=== PATIENT | male | born 1975 | race Caucasian/White ===

== ENCOUNTER 2023-07-16 09:37 | Outpatient (AMB) | payer BC, SELFPAY ==
--- NOTE | 2023-07-16 09:52 | MHC.OFFVIS ---
Vital Signs 07/16/23 09:55 Height 5 ft 8 in Weight 172 lb 6 oz BMI 26.2 BP 132/70 Blood Pressure Location Rt brachial Position Sitting Respiration 17 Pulse 59 Pulse Source Pulse Oximeter Pulse Oximetry (%) 98 Oxygen Delivery Method Room Air Intake Visit Reasons: ENP Fasciculations of the face - LVM w/add Intake Note: Pt presents to the office for new pt evaluation of left side facial twitching. Pt reports this has been going on for 6 months. He states most recently, its primarily the left eye, intermittent, not painful. [employer] Required: No Allergies No Known Allergies Allergy (Verified 07/16/23 09:52) Medication List - Last Reconciled 07/16/23 by Malou Herrera MD metoprolol succinate ER 50 mg PO DAILY omalizumab (Xolair) 150 mg subcut Q4W HPI Comments Details: 47y/o right handed male comes for evaluation of facial twitching . It started about 8 mths ago .It is mostly around his left eye and left side of the mouth and occasionally on the right side. It is not painful and has multiple episodes throughout the day and has episodes every day.He denies any shooting pains or tingling or numbness. WHen he was on vacation he noticed a decrease in his movements. No migraines but recalls having photopsia 2 years ago - 5 episodes. He denies family history, denies double vision He has h/o vertigo . His EEG and MRI brain w/o roseline were normal . he has h/o depression and anxiety and sees Dr. Figueroa He reports sleep issues due to anxiety. He was diagnosed with sleep apnea 5 years ago but he could not use CPAP. No exposure to neuroleptcis , depakote or reglan. [facility] Medical History (Updated 07/16/23 @ 10:18 by Malou Herrera MD) Extrapyramidal symptom Facial twitching Obstructive sleep apnea of adult Asymptomatic PVCs Positive FREDY (antinuclear antibody) Urticaria Asthma Anxiety Depression Surgical History (Updated 07/16/23 @ 09:58 by Rosa Stern CMA) H/O nasal septoplasty H/O knee surgery Social History (Updated 07/16/23 @ 09:59 by Rosa Stern CMA) Household Members: None Housing: Apartment Alcohol intake: current Comment: 1-2 drinks/week Patient Tobacco Use Status: Never used Tobacco Physical Exam Vital Signs: Last Vital Signs Pulse 59 07/16/23 09:55 Resp 17 07/16/23 09:55 BP 132/70 07/16/23 09:55 Pulse Ox 98 07/16/23 09:55 Oxygen Delivery Method Room Air 07/16/23 09:55 BMI result Body Mass Index 26.2 Const Orientation/consciousness: patient oriented x3 Eyes Pupils: Equal, round and reactive pupils present Neuro Other: mild decreased facial expression and blink right UE mild cog wheel rigidity Gait- mild decreased arm swing on the right Video- shows mild twitching left side of the face General: patient oriented x3 Cranial nerves: Yes Facial sensation intact/muscles of mastication intact, Yes Equal, round and reactive pupils present, Yes Bilaterally intact EOM present, Yes Nystagmus not present, Yes Normal facial strength present, Yes Midline tongue present, Yes Symmetric palate elevation present and Yes Ability to bilaterally elevate shoulders present Cognition (Neuro): normal cognition Gait exam (Neuro): Normal gait present Motor exam (neuro): 5/5 motor strength present throughout Deep tendon reflexes (DTR's): Right triceps reflex intensity grade: 2+, Left triceps reflex intensity grade: 2+, Rt Biceps (C5, C6): 2+, Left biceps reflex intensity grade: 2+, Right brachioradialis reflex intensity grade: 2+, Left brachioradialis reflex intensity grade: 2+, Right patellar reflex intensity grade: 3+ and Left patellar reflex intensity grade: 3+ Psych Affect: Anxious affect present Assessment & Plan Assessment & Plan (1) Facial twitching: Comment: episodic likely related to poorly controlled mood Code(s): G51.4 - Facial myokymia Category: Medical (2) Extrapyramidal symptom: Comment: right cogwheel rigidity facial bradykinesia Code(s): R29.818 - Other symptoms and signs involving the nervous system Category: Medical Plan Reviewed MRI and EEG - normal Reassured patient that it is likely related to anxiety I suggested he follow up with Dr. Figueroa for management of anxiety 'will consider repeat sleep study F/u mild extrapyramidal symptoms Coding Level of Care Code New Pt Level 4 (21338) Diagnoses Facial twitching G51.4 Extrapyramidal symptom R29.818
[2023-07-16 09:55] VITALS: BP 132/70; PULSE 59; RESP 17; O2SAT 98; BMI 26.2
== END 2023-07-16 10:23 | disposition home or self-care (01) ==
PROVIDERS: PCP Internal Medicine; Visit Provider Psychiatry & Neurology Neurology
DX: G51.4 Facial myokymia (principal); R29.818 Other symptoms and signs involving the nervous system
CPT/HCPCS: 99204

== ENCOUNTER → 2023-07-16 09:37 | Outpatient (BNVA) | payer BC, SELFPAY | PROVIDERS: PCP Internal Medicine; Visit Provider Psychiatry & Neurology Neurology ==

== ENCOUNTER 2024-01-29 08:50 | Outpatient (AMB) | payer BC, SELFPAY ==
--- NOTE | 2024-01-29 08:54 | A.OFFVIS_ITS ---
Vital Signs 01/29/24 08:56 Height 5 ft 8 in BP 118/76 Blood Pressure Location Rt brachial Position Sitting Intake Visit Reasons: follow up Fasciculations of the face Intake Note: Patient presents for follow up Allergies No Known Allergies Allergy (Verified 01/29/24 08:56) HPI Comments Details: 48y/o right handed male comes for follow up of facial twitching .The facial twitching has resolved . He switched jobs and he is less stressed. Now he reports episodes of visual aura- black spots lasting 30-40 minutes followed by headache. The headaches are not debilitating , mild pressure in parietal region . no light or noise sensitivity. Mild nausea.The headache scan last few hrs but can work through it.The episodes started 2 years ago - had 1/6 mths and now has more frequent episodes 1-4/month. 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 His sleep is worse - frequent arousals snoring and excessive daytime sleepiness. History from initial visit- Facial twitching started about 8 mths ago .It is mostly around his left eye and left side of the mouth and occasionally on the right side. It is not painful and has multiple episodes throughout the day and has episodes every day.He denies any shooting pains or tingling or numbness. WHen he was on vacation he noticed a decrease in his movements. No migraines but recalls having photopsia 2 years ago - 5 episodes. He denies family history, denies double vision He has h/o vertigo . His EEG and MRI brain w/o roseline were normal . he has h/o depression and anxiety and sees Dr. Figueroa He reports sleep issues due to anxiety. He was diagnosed with sleep apnea 5 years ago but he could not use CPAP. No exposure to neuroleptcis , depakote or reglan. [facility] Medical History (Updated 01/29/24 @ 09:21 by Malou Herrera MD) Hypersomnia Snoring Ocular migraine Extrapyramidal symptom Facial twitching Obstructive sleep apnea of adult Asymptomatic PVCs Positive FREDY (antinuclear antibody) Urticaria Asthma Anxiety Depression Surgical History H/O nasal septoplasty H/O knee surgery Social History Household Members: None Housing: Apartment Alcohol intake: current Comment: 1-2 drinks/week Patient Tobacco Use Status: Never used Tobacco Physical Exam Vital Signs: Last Vital Signs BP 118/76 01/29/24 08:56 Const Orientation/consciousness: patient oriented x3 Eyes Pupils: Equal, round and reactive pupils present Neuro Other: mild decreased facial expression and blink right UE mild cog wheel rigidity General: patient oriented x3 Cranial nerves: Yes Facial sensation intact/muscles of mastication intact, Yes Equal, round and reactive pupils present, Yes Bilaterally intact EOM present, Yes Nystagmus not present, Yes Normal facial strength present, Yes Midline tongue present, Yes Symmetric palate elevation present and Yes Ability to bilaterally elevate shoulders present Cognition (Neuro): normal cognition Gait exam (Neuro): Normal gait present Motor exam (neuro): 5/5 motor strength present throughout Psych Affect: Anxious affect present Assessment & Plan Assessment & Plan (1) Ocular migraine: Code(s): G43.109 - Migraine with aura, not intractable, without status migrainosus Category: Medical (2) Extrapyramidal symptom: Comment: right cogwheel rigidity facial bradykinesia Code(s): R29.818 - Other symptoms and signs involving the nervous system Category: Medical (3) Obstructive sleep apnea of adult: Comment: could not tolerate CPAP . Code(s): G47.33 - Obstructive sleep apnea (adult) (pediatric) Category: Medical (4) Facial twitching: Comment: episodic likely related to poorly controlled mood- resolved now Code(s): G51.4 - Facial myokymia Category: Medical Plan I will trial him on amitriptyline 10 mg qhs for ocular migraine prophylaxis Home sleep test to reevaluate his BINDU and determine if he is a candidate for INSPIRE Orders: Orders RT home sleep study Today G47.10 - Hypersomnia, unspecified, R06.83 - Snoring Medications: New amitriptyline 10 mg PO BEDTIME 30 tabs 6RF Coding Level of Care Code Est Pt Level 4 (75523) Complex EM visit Add On G2211 Diagnoses Ocular migraine G43.109 Extrapyramidal symptom R29.818 Obstructive sleep apnea of adult G47.33 Facial twitching G51.4
[2024-01-29 08:56] VITALS: BP 118/76
== END 2024-01-29 09:26 | disposition home or self-care (01) ==
PROVIDERS: PCP Internal Medicine; Visit Provider Psychiatry & Neurology Neurology
DX: G43.109 Migraine with aura, not intractable, without status migrainosus (principal); R29.818 Other symptoms and signs involving the nervous system; G47.33 Obstructive sleep apnea (adult) (pediatric); G51.4 Facial myokymia
CPT/HCPCS: 99214

== ENCOUNTER → 2024-01-29 08:50 | Outpatient (BNVA) | payer BC, SELFPAY | PROVIDERS: PCP Internal Medicine; Visit Provider Psychiatry & Neurology Neurology ==

== ENCOUNTER → 2024-03-22 07:48 | Outpatient (REF) | payer BC, SELFPAY | LOC: HO.SL 07:48 | PROVIDERS: PCP Internal Medicine; Visit Provider Psychiatry & Neurology Neurology | DX: R06.83 Snoring (principal); G47.10 Hypersomnia, unspecified | CPT/HCPCS: 95806 ==

== ENCOUNTER → 2024-03-23 08:06 | Outpatient (BNV) | payer BC, SELFPAY | PROVIDERS: PCP Internal Medicine; Visit Provider Psychiatry & Neurology Neurology | DX: R06.83 Snoring (principal); G47.10 Hypersomnia, unspecified | CPT/HCPCS: 95806 ==

== ENCOUNTER 2024-06-10 07:17 | Outpatient (AMB) | payer BC, SELFPAY ==
[2024-06-10 07:24] VITALS: BP 116/72; PULSE 69; O2SAT 98; BMI 26.9
--- NOTE | 2024-06-10 07:24 | MHC.OFFVIS ---
Vital Signs 06/10/24 07:24 Height 5 ft 8 in Weight 177 lb BMI 26.9 BP 116/72 Blood Pressure Location Lt brachial Position Sitting Pulse 69 Pulse Source Pulse Oximeter Pulse Oximetry (%) 98 Oxygen Delivery Method Room Air Intake Visit Reasons: follow up Fasciculations of the face Intake Note: Patient presents for follow up sleep study done 03/22/24 new med trial Amitriptyline. Allergies No Known Allergies Allergy (Verified 06/10/24 07:34) Medication List - Last Reconciled 06/10/24 by Malou Herrera MD amitriptyline 10 mg PO BEDTIME fluoxetine (Prozac) 20 mg PO DAILY omalizumab (Xolair) 150 mg subcut Q4W HPI Comments Details: 48y/o right handed male comes for follow up of facial twitching and ocular migraine. His ocular migraines are betetr with amitriptyline 10mg qhs . He missed taking amitriptyline for 2 weeks when he wnet on vacation an dhe had 1 epsidoe of migraine at that time . .The facial twitching has resolved . He switched jobs and he is less stressed.Home sleep test was normal . History from initial visit- Facial twitching started about 8 mths ago .It is mostly around his left eye and left side of the mouth and occasionally on the right side. It is not painful and has multiple episodes throughout the day and has episodes every day.He denies any shooting pains or tingling or numbness. WHen he was on vacation he noticed a decrease in his movements. No migraines but recalls having photopsia 2 years ago - 5 episodes. He denies family history, denies double vision He has h/o vertigo . His EEG and MRI brain w/o roseline were normal . he has h/o depression and anxiety and sees Dr. Figueroa He reports sleep issues due to anxiety. He was diagnosed with sleep apnea 5 years ago but he could not use CPAP. No exposure to neuroleptcis , depakote or reglan. [facility] Medical History Hypersomnia Snoring Ocular migraine Extrapyramidal symptom Facial twitching Obstructive sleep apnea of adult Asymptomatic PVCs Positive FREDY (antinuclear antibody) Urticaria Asthma Anxiety Depression Surgical History H/O nasal septoplasty H/O knee surgery Social History Household Members: None Housing: Apartment Alcohol intake: current Comment: 1-2 drinks/week Patient Tobacco Use Status: Never used Tobacco Physical Exam Vital Signs: Last Vital Signs Pulse 69 06/10/24 07:24 BP 116/72 06/10/24 07:24 Pulse Ox 98 06/10/24 07:24 Oxygen Delivery Method Room Air 06/10/24 07:24 BMI result Body Mass Index 26.9 Const Orientation/consciousness: patient oriented x3 Eyes Pupils: Equal, round and reactive pupils present Neuro Other: mild decreased facial expression and blink normal tone Decreased arm swing on the right General: patient oriented x3 Cranial nerves: Yes Facial sensation intact/muscles of mastication intact, Yes Equal, round and reactive pupils present, Yes Bilaterally intact EOM present, Yes Nystagmus not present, Yes Normal facial strength present, Yes Midline tongue present, Yes Symmetric palate elevation present and Yes Ability to bilaterally elevate shoulders present Cognition (Neuro): normal cognition Gait exam (Neuro): Normal gait present Motor exam (neuro): 5/5 motor strength present throughout Psych Affect: Anxious affect present Assessment & Plan Assessment & Plan (1) Ocular migraine: Code(s): G43.109 - Migraine with aura, not intractable, without status migrainosus Category: Medical (2) Extrapyramidal symptom: Comment: right cogwheel rigidity facial bradykinesia Code(s): R29.818 - Other symptoms and signs involving the nervous system Category: Medical (3) Facial twitching: Comment: episodic likely related to poorly controlled mood- resolved now Code(s): G51.4 - Facial myokymia Category: Medical Plan Continue amitriptyline 10 mg qhs for ocular migraine prophylaxis F/U extrapyramidal symptoms HST results discussed Medications: Refilled amitriptyline 10 mg PO BEDTIME 90 tabs 6RF Coding Level of Care Code Est Pt Level 4 (17455) Complex EM visit Add On G2211 Diagnoses Ocular migraine G43.109 Extrapyramidal symptom R29.818 Facial twitching G51.4
== END 2024-06-10 07:44 | disposition home or self-care (01) ==
LOC: HO.HSMS 07:18
PROVIDERS: PCP Internal Medicine; Visit Provider Psychiatry & Neurology Neurology
DX: G43.109 Migraine with aura, not intractable, without status migrainosus (principal); R29.818 Other symptoms and signs involving the nervous system; G51.4 Facial myokymia
CPT/HCPCS: 99214

== ENCOUNTER → 2024-06-10 07:17 | Outpatient (BNVA) | payer BC, SELFPAY | PROVIDERS: PCP Internal Medicine; Visit Provider Psychiatry & Neurology Neurology | DX: R06.83 Snoring (principal); G47.10 Hypersomnia, unspecified ==